=== PATIENT | female | born 1995 | race Two or more races ===

== ENCOUNTER → 2019-04-20 | Emergency (ER) | payer OTHER ==
[~2019-04-20] VITALS: Ht 162.6 cm; Wt 99.8 kg
[~2019-04-20] MED LIST: diphenhdrAMINE HCL 50 MG/1 ML VL IV ONE; methylPREDNISolone SOD SUCC 125 MG/2 ML VL IM ONE
[2019-04-20 19:30] VITALS: BP 109/54
== END | disposition home or self-care (01) ==
LOC: ER 19:11
DX: L20.9 Atopic dermatitis, unspecified (principal)
CPT/HCPCS: 96372; 96374; 99284; J1200; J2930